=== PATIENT | female | born 1985 | race African-American/Black ===

== ENCOUNTER 2018-02-18 10:33 | Emergency (ER) | payer MEDICAID ==
[~2018-02-18] VITALS: Ht 157.5 cm; Wt 60.0 kg
[2018-02-18] MEDS ORDERED: SODIUM CHLORIDE 0.9% 1,000 ML IV ONE (13:57)
[2018-02-18] MEDS ORDERED: FAMOTIDINE 20MG/2ML VIAL IV STA (13:57)
[2018-02-18] MEDS ORDERED: METOCLOPRAMIDE HCL 10MG/2ML VIAL IV STA (13:57)
[2018-02-18] MEDS ORDERED: DIPHENHYDRAMINE 50MG/ML VIAL IV ONE (14:00)
[2018-02-18 14:42] LABS: HEMATOCRIT. 42.8 % (36.0-48.0); HEMOGLOBIN. 14.2 g/dL (12.0-16.0); MEAN CORPUSCULAR HEMOGLOBIN 31.2 pg (28.0-32.0); MEAN CORPUSCULAR VOLUME 93.6 fL (81.0-99.0); MEAN PLATELET VOLUME 8.3 fl (7.4-10.4); PLATELET 217 x1000/uL (130-400); RED BLOOD CELL COUNT 4.57 mill/uL (4.2-5.4); RED CELL DISTRIBUTION WIDTH 13.3 % (11.6-14.6)
[2018-02-18 14:43] LABS: CHLORIDE 108 mEq/L (98-107)
[2018-02-18 14:55] LABS: HCG SCREEN NEGATIVE
[2018-02-18 15:29] LABS: PLATELET ESTIMATE NORMAL
[2018-02-18] MEDS ORDERED: MORPHINE SULFATE 4 MG/ML CPJ (NOT FOR IM USE) IV STA (16:23)
[2018-02-18] MEDS ORDERED: ONDANSETRON HCL 4MG/2ML INJ IV STA (16:23)
[2018-02-18 16:25] LABS: CLARITY URINE CLEAR (CLEAR); COLOR URINE YELLOW (YELLOW); KETONES URINE 1+ (NEGATIVE); LEUKOCYTE ESTERASE URINE NEGATIVE (NEGATIVE); NITRITE URINE NEGATIVE (NEGATIVE); OCCULT BLOOD URINE TRACE (NEGATIVE); PH URINE 8.5 (4.5-8.0); PROTEIN URINE NEGATIVE (NEGATIVE); UROBILINOGEN URINE 0.2 E.U./dL (0.2-1.0)
[2018-02-18 16:38] LABS: *AMPHETAMINES SCREEN URINE NEGATIVE (NEGATIVE); *BARBITURATES SCREEN URINE NEGATIVE (NEGATIVE); *BENZODIAZEPINES SCREEN URINE NEGATIVE (NEGATIVE); *COCAINE SCREEN URINE NEGATIVE (NEGATIVE)
[2018-02-18 16:39] LABS: METHADONE URINE SCREEN NEGATIVE (NEGATIVE); OPIATES URINE SCREEN NEGATIVE (NEGATIVE); PHENCYCLIDINE URINE SCREEN NEGATIVE (NEGATIVE)
[2018-02-18 16:40] LABS: CANNABINOID URINE SCREEN PRESUMTIVE POSITIVE (NEGATIVE)
[2018-02-18] MEDS: SODIUM CHLORIDE 0.9% 1000ML BAG (SEPSIS BOLUS) IV NR ×2 (16:48→19:10)
[2018-02-18] MEDS: MORPHINE SULFATE 2 MG/ML CPJ (NOT FOR IM USE) IV NR ×2 (16:49→18:08)
[2018-02-18 16:52] VITALS: BP 112/76
[2018-02-18] MEDS ORDERED: ONDANSETRON 4MG ODT PO ONE (18:45)
== END 2018-02-18 19:30 | disposition home or self-care (01) ==
LOC: ER 11:35
DX: E87.2 Acidosis (principal); R11.2 Nausea with vomiting, unspecified; R11.10 Vomiting, unspecified; R10.13 Epigastric pain; F12.10 Cannabis abuse, uncomplicated; F17.290 Nicotine dependence, other tobacco product, uncomplicated; R19.7 Diarrhea, unspecified; Z88.6 Allergy status to analgesic agent; Z87.11 Personal history of peptic ulcer disease
CPT/HCPCS: 36415; 80053; 80305; 81003; 81025; 83605; 83690; 84703; 85025; 96374; 96375; 99283; 99406; J1200; J2270; J2765; J3490; J7030; Q0162

== ENCOUNTER 2023-12-09 14:25 | Emergency (ER) | payer MEDICAID ==
[~2023-12-09] VITALS: Ht 154.9 cm; Wt 47.6 kg
[2023-12-09 14:30] VITALS: BP 142/95; PULSE 76; RESP 18; TEMP 97.8; O2SAT 100
== END 2023-12-09 14:53 | disposition left against medical advice (07) ==
LOC: ER 14:25
DX: R11.2 Nausea with vomiting, unspecified (principal); Z53.21 Procedure and treatment not carried out due to patient leaving prior to being seen by health care provider

== ENCOUNTER 2023-12-09 15:34 | Emergency (ER) | payer MEDICAID ==
[~2023-12-09] VITALS: Ht 167.6 cm; Wt 55.0 kg
[2023-12-09 15:36] VITALS: BP 142/92; PULSE 82; RESP 16; TEMP 99.1; O2SAT 98
[2023-12-09] MEDS ORDERED: SODIUM CHLORIDE 0.9% 1,000 ML IV ONE (15:45)
[2023-12-09] MEDS ORDERED: PROCHLORPERAZINE 10MG/2ML VIAL IV ONE (15:45)
[2023-12-09] MEDS ORDERED: DIPHENHYDRAMINE 50MG/ML VIAL IV ONE (15:45)
[2023-12-09 17:20] LABS: BASOPHILS % 0.2 % (0.0-2.0); EOSINOPHILS % 0.1 % (0.0-5.0); HEMATOCRIT. 48.8 % (36.0-48.0); HEMOGLOBIN. 16.3 g/dL (12.0-16.0); LYMPHOCYTES % 12.5 % (20.0-50.0); MEAN CORPUSCULAR HGB CONC 33.3 g/dL (31.0-37.0); MEAN CORPUSCULAR VOLUME 95.9 fL (81.0-99.0); MEAN PLATELET VOLUME 8.5 fl (7.4-10.4); MONOCYTES % 8.7 % (2.0-8.0); NEUTROPHILS % 78.5 % (40.0-76.0); PLATELET 278 x1000/uL (130-400); RED BLOOD CELL COUNT 5.09 mill/uL (4.2-5.4); RED CELL DISTRIBUTION WIDTH 13.7 % (11.6-14.6); WHITE BLOOD COUNT 11.9 x1000/uL (4.5-11.0)
[2023-12-09 17:23] LABS: PROTHROMBIN TIME 10.8 sec (9.6-11.0)
[2023-12-09 17:25] LABS: CHLORIDE 99 mEq/L (98-107); SODIUM 135 mEq/L (136-145)
[2023-12-09 17:26] LABS: CALCIUM 10.4 mg/dL (8.7-10.4); CARBON DIOXIDE 25 mEq/L (21-32)
[2023-12-09 17:31] LABS: CREATININE 0.9 mg/dL (0.6-1.0); GLUCOSE 112 mg/dL (70-105)
[2023-12-09 17:36] LABS: HCG SCREEN NEGATIVE
[2023-12-09 17:49] LABS: ETHANOL BLOOD < 10 mg/dL (<10); UREA NITROGEN BLOOD < 5 mg/dL (9-23)
[2023-12-09] MEDS ORDERED: POTASSIUM CHLORIDE 20MEQ TABLET SR PO NR (20:35)
== END 2023-12-09 21:03 | disposition left against medical advice (07) ==
LOC: ER 15:34
DX: R11.10 Vomiting, unspecified (principal); E87.6 Hypokalemia; F12.10 Cannabis abuse, uncomplicated; Z88.6 Allergy status to analgesic agent
CPT/HCPCS: 80048; 80320; 84703; 83690; 85025; 85610; 36415; 99283; J7030; J0780; G0480

== ENCOUNTER 2024-04-07 07:19 | Emergency (ER) | payer MEDICAID ==
[~2024-04-07] VITALS: Ht 162.6 cm; Wt 50.0 kg
[2024-04-07] MEDS ORDERED: FAMOTIDINE 20MG/2ML VIAL IV STA (07:27)
[2024-04-07] MEDS ORDERED: ONDANSETRON HCL 4MG/2ML INJ IV STA (07:27)
[2024-04-07 07:31] VITALS: BP 132/88; PULSE 86; RESP 16; TEMP 98.2; O2SAT 98
[2024-04-07 08:32] LABS: CHLORIDE 108 mEq/L (98-107); POTASSIUM 3.3 mEq/L (3.5-5.1); SODIUM 139 mEq/L (136-145)
[2024-04-07 08:33] LABS: CARBON DIOXIDE 18 mEq/L (21-32); HCG SCREEN NEGATIVE
[2024-04-07 08:34] LABS: CALCIUM 9.8 mg/dL (8.7-10.4)
[2024-04-07 08:36] LABS: PROTHROMBIN TIME 11.5 sec (9.6-11.0)
[2024-04-07 08:38] LABS: CREATININE 0.8 mg/dL (0.6-1.0); GLUCOSE 147 mg/dL (70-105)
[2024-04-07 08:40] LABS: ALANINE AMINOTRANSFERASE 25 IU/L (10-49); ALBUMIN 4.7 g/dL (3.2-4.8); ASPARTATE AMINOTRANSFERASE 37 IU/L (<34)
[2024-04-07 08:41] LABS: BILIRUBIN DIRECT 0.2 mg/dL (<=3.0); BILIRUBIN TOTAL 0.6 mg/dL (0.1-1.0); PROTEIN TOTAL 7.2 g/dL (6.0-8.3)
[2024-04-07 08:44] LABS: UREA NITROGEN BLOOD < 5 mg/dL (9-23)
[2024-04-07 08:50] LABS: BASOPHILS % 0.5 % (0.0-2.0); EOSINOPHILS % 0.1 % (0.0-5.0); HEMATOCRIT. 42.5 % (36.0-48.0); HEMOGLOBIN. 14.6 g/dL (12.0-16.0); LYMPHOCYTES % 19.1 % (20.0-50.0); MEAN CORPUSCULAR HEMOGLOBIN 32.7 pg (28.0-32.0); MEAN CORPUSCULAR HGB CONC 34.4 g/dL (31.0-37.0); MEAN CORPUSCULAR VOLUME 95.2 fL (81.0-99.0); MONOCYTES % 5.5 % (2.0-8.0); NEUTROPHILS % 74.8 % (40.0-76.0); PLATELET 258 x1000/uL (130-400); RED BLOOD CELL COUNT 4.46 mill/uL (4.2-5.4); RED CELL DISTRIBUTION WIDTH 13.3 % (11.6-14.6); WHITE BLOOD COUNT 9.2 x1000/uL (4.5-11.0)
[2024-04-07] MEDS: MAGNESIUM/ALUMINUM HYDROXIDE/SIMETHICONE 30ML UDC PO ONE (09:50)
[2024-04-07] MEDS: FAMOTIDINE 20MG/2ML VIAL IV NR (09:55)
[2024-04-07] MEDS: ONDANSETRON HCL 4MG/2ML INJ IV NR ×2 (09:55→10:54)
[2024-04-07] MEDS: METOCLOPRAMIDE HCL 10MG/2ML VIAL IV ONE (13:15)
== END 2024-04-07 15:45 | disposition left against medical advice (07) ==
LOC: ER 07:19 → EDBEDREQTM 13:35 → EDBEDREQ 13:36 → ER 15:45 → CANBEDREQ 15:47
DX: R11.10 Vomiting, unspecified (principal); F10.90 Alcohol use, unspecified, uncomplicated; F12.90 Cannabis use, unspecified, uncomplicated; Z87.11 Personal history of peptic ulcer disease; Z88.6 Allergy status to analgesic agent; Y90.9 Presence of alcohol in blood, level not specified
CPT/HCPCS: 80076; 80048; 84703; 83690; 85025; 85610; 36415; 93005; 96374; 96375; 96376; 99284; J3490; J2765; J2405; Z7610 ×3

== ENCOUNTER 2024-04-09 10:58 | Emergency (ER) | payer MEDICAID ==
[~2024-04-09] VITALS: Ht 165.1 cm; Wt 50.0 kg
[2024-04-09 10:59] VITALS: TEMP 98.5; O2SAT 99
[2024-04-09 12:49] LABS: HEMATOCRIT 47.1 % (36.0-48.0); HEMOGLOBIN 15.7 g/dL (12.0-16.0); MEAN CORPUSCULAR HEMOGLOBIN 31.8 pg (28.0-32.0); MEAN CORPUSCULAR HGB CONC 33.4 g/dL (31.0-37.0); MEAN CORPUSCULAR VOLUME 95.2 fL (81.0-99.0); PLATELET 249 x1000/uL (130-400); RED BLOOD CELL COUNT 4.95 mill/uL (4.2-5.4); RED CELL DISTRIBUTION WIDTH 13.2 % (11.6-14.6); WHITE BLOOD COUNT 9.6 x1000/uL (4.5-11.0)
[2024-04-09 13:06] LABS: CHLORIDE 99 mEq/L (98-107); POTASSIUM 3.3 mEq/L (3.5-5.1); SODIUM 136 mEq/L (136-145)
[2024-04-09 13:07] LABS: CALCIUM 10.2 mg/dL (8.7-10.4); CARBON DIOXIDE 29 mEq/L (21-32)
[2024-04-09 13:12] LABS: CREATININE 0.8 mg/dL (0.6-1.0); GLUCOSE 104 mg/dL (70-105); UREA NITROGEN BLOOD 5 mg/dL (9-23)
[2024-04-09 13:15] LABS: HCG SCREEN NEGATIVE
[2024-04-09] MEDS: SODIUM CHLORIDE 0.9% 1,000 ML IV ONE (13:59)
[2024-04-09] MEDS: ONDANSETRON HCL 4MG/2ML INJ IV ONE (13:59)
[2024-04-09] MEDS: DICYCLOMINE HCL 10MG/ML 2ML VIAL IM ONE (13:59)
[2024-04-09 14:00] VITALS: BP 159/89; PULSE 85; RESP 20
[2024-04-09] MEDS: FAMOTIDINE 20MG/2ML VIAL IV ONE (14:00)
[2024-04-09] MEDS: KETOROLAC 30MG/ML VIAL IV ONE (14:00)
[2024-04-09] MEDS: ACETAMINOPHEN 1000MG/100ML 100 ML IV ONE (14:00)
[2024-04-09] MEDS: KCL 20MEQ/100ML PREMIX 100 ML IV NR (15:00)
== END 2024-04-09 16:00 | disposition home or self-care (01) ==
LOC: ER 10:58
DX: R11.15 Cyclical vomiting syndrome unrelated to migraine (principal); F10.90 Alcohol use, unspecified, uncomplicated; F12.90 Cannabis use, unspecified, uncomplicated; Y90.9 Presence of alcohol in blood, level not specified
CPT/HCPCS: 99284; 96365; 96375; 80048; 84703; 83690; 85027; 36415; 96372; J1885; J0500; J3490; J2405; J3480; J7030; J0131

== ENCOUNTER 2025-01-18 22:33 | Emergency (ER) | payer MEDICAID, OTHER ==
[~2025-01-18] VITALS: Ht 157.5 cm; Wt 51.4 kg
[2025-01-18 22:35] VITALS: O2SAT 100
[2025-01-18 22:36] VITALS: TEMP 36.7; O2SAT 100
[2025-01-18 23:42] VITALS: BP 154/90; PULSE 73; RESP 18
[2025-01-18] MEDS: DEXAMETHASONE 10 MG/ML VIAL PO ONE (23:42)
[2025-01-18] MEDS: CYCLOBENZAPRINE 10MG TABLET PO ONE (23:42)
[2025-01-18] MEDS: KETOROLAC 15MG/ML VIAL IM ONE (23:42)
[2025-01-18 23:50] LABS: BASOPHILS % 0.4 % (0.0-2.0); EOSINOPHILS % 0.0 % (0.0-5.0); HEMATOCRIT. 43.3 % (36.0-48.0); HEMOGLOBIN. 14.5 g/dL (12.0-16.0); LYMPHOCYTES % 10.9 % (20.0-50.0); MEAN PLATELET VOLUME 7.8 fl (7.4-10.4); MONOCYTES % 3.7 % (2.0-8.0); NEUTROPHILS % 85.0 % (40.0-76.0); PLATELET 272 x1000/uL (130-400); RED BLOOD CELL COUNT 4.59 mill/uL (4.2-5.4); RED CELL DISTRIBUTION WIDTH 13.9 % (11.6-14.6)
[2025-01-19 00:03] LABS: CREATININE 0.7 mg/dL (0.6-1.0); UREA NITROGEN BLOOD < 5 mg/dL (9-23)
[2025-01-19 00:05] LABS: ASPARTATE AMINOTRANSFERASE 33 IU/L (<34); BILIRUBIN DIRECT 0.2 mg/dL (<=3.0); BILIRUBIN TOTAL 0.7 mg/dL (0.1-1.0)
[2025-01-19 00:06] LABS: PROTEIN TOTAL 7.4 g/dL (6.0-8.3)
[2025-01-19] MEDS: DIPHENHYDRAMINE 50MG/ML VIAL IM ONE (01:11)
[2025-01-19 02:57] LABS: HCG SCREEN NEGATIVE
== END 2025-01-19 01:42 | disposition left against medical advice (07) ==
LOC: ER 22:33
DX: R11.10 Vomiting, unspecified (principal); F10.90 Alcohol use, unspecified, uncomplicated; F12.90 Cannabis use, unspecified, uncomplicated; Z79.52 Long term (current) use of systemic steroids; Y90.9 Presence of alcohol in blood, level not specified
CPT/HCPCS: 99285; 71045; 80076; 80048; 84703; 83690; 85025; 36415; 93005; 96372 ×2; J1885; J1100; J1200